=== PATIENT | male | born 1955 | race Asian ===

== ENCOUNTER 2019-10-02 15:26 | Emergency (ER) | payer OTHER ==
[~2019-10-02] VITALS: Ht 188 cm; Wt 140.1 kg
[2019-10-02 15:34] VITALS: BP 105/67
[2019-10-02] MEDS ORDERED: SULFAMETH./TRIMETHOPRIM DS 800MG/160MG TABLET PO ONE (16:00)
[2019-10-02] MEDS ORDERED: CEPHALEXIN 500 MG CAPSULE PO ONE (16:00)
[2019-10-02] MEDS ORDERED: SULFAMETH./TRIMETHOPRIM DS 800MG/160MG TABLET ONE (16:02)
[2019-10-02] MEDS ORDERED: CEPHALEXIN 500 MG CAPSULE ONE (16:03)
--- NOTE | 2019-10-02 16:47 | NUR ---
Patient given discharge instructions and Rx, they have confirmed that they understand the instructions. Patient ambulatory with steady gait.
== END 2019-10-02 16:52 | disposition home or self-care (01) ==
LOC: ED 16:45
DX: L03.313 Cellulitis of chest wall (principal); L02.213 Cutaneous abscess of chest wall
CPT/HCPCS: 99283